=== PATIENT | female | born 1985 | race Caucasian/White ===

== ENCOUNTER 2022-11-15 08:10 | Inpatient (IN) | payer SELFPAY, OTHER ==
[2022-11-15] VITALS (40 sets, daily range): BP systolic 99–135; BP diastolic 56–84; PULSE 65–105; RESP 16–17; TEMP 36.6–37.8; O2SAT 97–99; BMI 26.4
--- NOTE | 2022-11-15 08:48 | HP.PCM.OB_ITS ---
HPI - General General Date of Admission: 11/15/22 HPI Narrative NATE BUTLER, is a 37 F at 39 weeks gestation who presents as a transfer from attempted home delivery with Idalia Butler. Patient had SROM 11/14/22 around 1630 for clear fluid and continues to have clear fluid. Patient has labored all night and is tired and desires epidural for pain control. has been uncomplicated. She has received care through irrigation flume layer. Maternal Data Information MARYAM Calculator Estimated Delivery Date Method Current WG Current Estimate 11/22/22 Manual 39w 0d PFSH PFS Medical History (Updated 11/15/22 @ 13:11 by Barb Ridley CNM) Finger amputee Home Medications calcium 150 mg tablet 150 mg PO DAILY 11/15/22 [History Last Taken Unknown] omega-3 fatty acids 1,000 mg PO DAILY 11/15/22 [History Last Taken Unknown] elwomxve-dro-Hl-FA 1 mg tablet 1 tab PO DAILY 11/15/22 [History Last Taken Unknown]
--- NOTE | 2022-11-15 08:48 | PCM.HP.OB ---
HPI - General General Date of Admission: 11/15/22 HPI Narrative NATE PAIGE, is a 37 F at 39 weeks gestation who presents as a transfer from attempted home delivery with Idalia Paige. Patient had SROM 11/14/22 around 1630 for clear fluid and continues to have clear fluid. Patient has labored all night and is tired and desires epidural for pain control. has been uncomplicated. 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 Maternal Data Information MARYAM Calculator Estimated Delivery Date Method Current WG Current Estimate 11/22/22 Manual 39w 0d PFSH PFSH Medical History (Updated 11/15/22 @ 13:11 by Barb Ridley CNM) Finger amputee Home Medications calcium 150 mg tablet 150 mg PO DAILY 11/15/22 [History Last Taken Unknown] omega-3 fatty acids 1,000 mg PO DAILY 11/15/22 [History Last Taken Unknown] eccrmtlh-vsc-Vg-FA 1 mg tablet 1 tab PO DAILY 11/15/22 [History Last Taken Unknown] Allergy/AdvReac Type Severity Reaction Status Date / Time No Known Allergies Allergy Verified 11/15/22 08:40 Family History (Updated 11/15/22 @ 09:04 by Елена Mcqueen) Mother Breast cancer Social History Smoking Status: Never smoker History Elective abortions Hx Para 7 Spontaneous abortions Hx # Term Pregnancies Ectopic pregnancies Hx # Pregnancies Multiple births # of living children ROS Eyes Eyes: Denies blurry vision, change in vision or spots in vision ENT HEENT: Denies dizziness or headache(s) Cardiovascular Cardiovascular: Denies abdominal pain, chest pain or dyspnea Respiratory/Chest Respiratory/Chest: Denies cough, dyspnea, shortness of breath at rest or shortness of breath with exertion Gastrointestinal Gastrointestinal: Denies abdominal pain, diarrhea or vomiting Genitourinary Genitourinary: Denies change in urinary stream, difficulty urinating or dysuria Musculoskeletal Musculoskeletal: Reports none Integumentary Integumentary: Denies rash Neurologic Neurologic: Denies dizziness, headache(s), memory loss or weakness Psychiatric Psychiatric: Reports none Vital Signs Vital Signs Vital Signs: 11/15/22 08:34 11/15/22 08:34 11/15/22 08:34 Temperature Temperature Source Temporal Pulse Rate 101 H Blood Pressure 125/77 H BP Systolic 125 BP Diastolic 77 11/15/22 08:34 Temperature 98.8 F Temperature Source Pulse Rate Blood Pressure BP Systolic BP Diastolic Weight Weight: 140 lb Body Mass Index (BMI) 26.4 Physical Exam Const alert, oriented x3 and no apparent distress General Appearance: cooperative Orientation / Consciousness: awake Exam Limitations: no limitations HEENT normocephalic Head and Scalp: normal to inspection Eyes General Eye: normal appearance of both eyes Neck full ROM and no lymphadenopathy Lymph Lymphatic: no lymphadenopathy noted Chest inspection of chest normal Resp normal respiratory effort, normal air movement and clear to auscultation bilaterally Effort and Inspection: able to speak in complete sentences and symmetric chest movement Cardio regular rate and regular rhythm GI normal to inspection, nondistended, normoactive bowel sounds Manual OB Exam: presentation cephalic Amniotic Fluid: clear amniotic fluid Back/Spine normal ROM Extremity full ROM and no calf tenderness Skin no rashes or lesions noted General Skin Exam: no breakdown Neuro oriented x3 and CN's II-XII intact bilaterally Psych mental status grossly normal and thought process normal Labs Labs Labs: Blood Type A POSITIVE Antibody Screen NEGATIVE Hct 36.3 % (37-47) L Hgb 12.3 g/dL (12.0-15.0) Syphilis Total Ab Non-reactive Rubella IgG Antibody Reactive (Nonreactive) Hep Bs Antigen Non-Reactive (Nonreactive) Chlamydia DNA (EPI) Pending Neisseria gonorrhoeae DNA (EPI) Pending HIV 1&2 Antibody Non-Reactive (Nonreactive) Group B Strep DNA Negative (Negative) Assessment & Plan (1) 39 weeks gestation of : (2) Spontaneous rupture of amniotic membranes: (3) Grand multipara in labor: (4) Active labor at term: PLAN: Plan TAUS confirms Cephalic Clear fluid Admit to labor and delivery Routine labs/ all labs Rapid GBS Start IV fluids and run per orders Epidural when indicated Anticipate Dr. Mcmillan notified of admission and is collaborating physician- in route to evaluate patient at bedside
[2022-11-15] MEDS: LACTATED RINGERS 500 ML 999 ML IV (08:54)
[2022-11-15 09:10] LABS: Bedside Glucose 115 mg/dL (74-106)
[2022-11-15 09:16] LABS: Absolute Lymphocyte Count 0.87 X10^3/uL (0.83-4.51); Absolute Neutrophil Count 22.2 X10^3/uL (2.0-7.7); Basophil# 0.04 X10^3/uL; Basophil% 0.2 % (0-1); Eosinophil# 0.59 X10^3/uL; Eosinophils% 2.4 % (0-5); Hematocrit 36.3 % (37-47); Hemoglobin 12.3 g/dL (12.0-15.0); Lymphocyte # 0.87 X10^3/ul (0.83-4.51); Lymphocyte % 3.5 % (19-41); Mean Corp Hgb Conc 33.9 g/dL (32-36); Mean Corpuscular Hgb 30.4 pg (27.0-32.0); Mean Corpuscular Volume 89.6 fL (81-99); Mean Platelet Vol. 8.3 fl (6.2-12.0); Monocyte# 0.71 X10^3/uL; Monocyte% 2.9 % (0-10); NRBC Flagged by Analyzer 0 % (0-5); POSITIVE DIFFERENTIAL YES; Platelet Count 260 K/mm3 (150-450); RBC Distribution Width CV 13.6 % (11.6-14.6); RBC Distribution Width SD 44.6 fl (35.1-43.9); Red Blood Count 4.05 M/mm3 (4.2-5.4); White Blood Count 24.7 K/mm3 (4.4-11.0)
[2022-11-15 09:17] LABS: Differential Indicated SCAN CRITERIA MET
[2022-11-15] MEDS: Lactated Ringers 1,000 ML 200 ML IV (09:45)
[2022-11-15 09:58] LABS: Rubella IgG Reactive (Nonreactive); Syphilis Antibodies Non-reactive
[2022-11-15] MEDS: Oxytocin 15 Units/NS 250ml 15 UNITS/250 ML IV.SOLN 2 UNITS IV (10:16)
[2022-11-15] MEDS: fentaNYL-bupivacaine (epidural) 100 ML BAG EPIDURAL (10:16)
[2022-11-15 10:17] LABS: HIV - WCH Non-Reactive (Nonreactive); Hepatitis B Surface Antigen Non-Reactive (Nonreactive); Hepatitis C Antibody Non-Reactive (Nonreactive)
[2022-11-15 10:18] LABS: Group B Strep DNA By PCR Negative (Negative); Internal Control PASS; Probe Check PASS; Specimen Processing Control PASS
[2022-11-15 11:15] LABS: Bacteria 0 SEEN /hpf (None Seen); Mucous, Urine 0 SEEN /hpf (<or=2+); Squamous Epithelial Cells - UA 0 SEEN /hpf (5-10)
[2022-11-15 11:26] LABS: Color, Urine Yellow (Yellow); Glucose, Dipstick Normal (Normal); Leukocyte Esterase-Dipstick 25 /ul (Negative); Nitrite-Dipstick Negative (Negative); Occult Blood-Urine 250 /ul (Negative); Protein-Dipstick 30 mg/dl (Negative); Specific Gravity, Urine 1.015 (1.002-1.030); Urine Bilirubin Dipstick Negative (Negative); Urine Clarity Sl. Cloudy (Clear); Urine Urobilinogen Normal (Normal)
[2022-11-15 11:27] LABS: Ketone-Dipstick 150 mg/dl (Negative)
[2022-11-15 11:32] LABS: Red Blood Cells-Urine 25-50 SEEN /hpf (0-5); White Blood Cells 0-5 SEEN /hpf (0-5)
--- NOTE | 2022-11-15 12:58 | PCM.PN.BLA ---
Progress Note Comfortable w/ epidural. Cervix 9+ cm, mostly swollen anterior lip. Reduced during a contraction but came back. Will continue expectanat management. Category 2 tracing but normal variability, baseline and accels present. Continue pitocin. EFW < 4000 gm clinically. Pelvis clinically adequate. Case reviewed w/ C. Khai ANGLE. Cont. w/ comanagement.
--- NOTE | 2022-11-15 14:22 | EX.PCM.OBRPT ---
Assessment & Plan (1) (spontaneous vaginal delivery): Maternal Data Information MARYAM Calculator Estimated Delivery Date Method Current WG Current Estimate 11/22/22 Manual 39w 0d Vaginal Delivery Maternal Presentation Maternal Presentation: Active Labor and Spontaneous Rupture of Membranes Maternal Presentation: at 39 weeks gestation with spontaneous rupture of membranes and in active labor. Operative Information Date of Procedure: 11/15/22 Pre-Operative Diagnosis: Term gestation Post-Operative Diagnosis: , live male Surgery / Procedure Performed: Spontaneous Vaginal Delivery Type of Anesthesia: Epidural Drain: [place] to straight drain Estimated Blood Loss: 150 Time of Delivery: 14:09 Findings Description of Procedure: Called to patient room for complete dilation. With 2 pushes, head delivered over intact perineum followed immediately by anterior shoulder and remainder of infant body without traction. FOB assisted with delivery of . Vigorous male placed on maternal abdomen and was attended to by nursing staff. Pitocin IV started for active management of the third stage of labor. 3 vessel cord clamped and cut by FOB after delay and placed skin to skin. Placenta delivered spontaneously and intact. Vagina and perineum intact. Vaginal sweep completed by me. EBL 150 cc, APGARS 8/9. Fundus firm 2 below U. Patient and infant bonding well at this time. Dr. Mcmillan in house and notified of delivery. Presentation: Vertex and STEVENSON Amniotic Membrane Rupture Type: Spontaneous Time of Membrane Rupture: 11/14/22 1630 Amniotic Fluid Description: Clear Placental Delivery Description: Spontaneous Placenta Disposition: [facility] Cord Vessel Description: 3 Vessels Cord Entanglement: None Infant A Gender: Male (1 minute): 8 (5 minute): 9 Delayed Cord Clamping: Yes Post Vaginal Delivery Medications Given After Delivery: IV Pitocin Episiotomy Description: None Laceration: None Complication Complications: None
[2022-11-15] MEDS: Oxytocin 15 Units/NS 250ml 15 UNITS/250 ML IV.SOLN 83 UNITS IV (15:16)
[2022-11-15] MEDS: Methylergonovine 0.2 MG/ML Ampul IM (15:17)
--- NOTE | 2022-11-15 19:00 | NURSING ---
RN helped pt ambulate to bathroom. Tolerated well. After pt went to bathroom, helped to chair while RN changed bed. Pt states starting to feel like her head is swimming and her ears are plugged. Helped pt back to bed. BP stable-HR was slightly elevated, then pt got tearful and just said she was tired and needed to sleep-HR elevated to 130's. RN at bedside-reassed HR and was back to 90's. Pt just states she feels exhausted and needs to sleep. Nightshift RN now at bedside.
--- NOTE | 2022-11-15 20:30 | NURSING ---
This RN at bedside and pt wanted to get up again for feeling like she had to urinate and got up and felt asymptomatic with this RNpa her. pt voided with no difficulties and got back in bed after.
[2022-11-16 04:30] VITALS: BP 92/45; PULSE 77; RESP 17; TEMP 37.1
[2022-11-16] MEDS: Acetaminophen 500 MG Tablet 1000 MG PO (04:30)
[2022-11-16 05:35] VITALS: BP 95/54
[2022-11-16 05:44] LABS: Hematocrit 30.5 % (37-47); Hemoglobin 10.4 g/dL (12.0-15.0); Mean Corp Hgb Conc 34.1 g/dL (32-36); Mean Corpuscular Hgb 31.2 pg (27.0-32.0); Mean Corpuscular Volume 91.6 fL (81-99); Mean Platelet Vol. 8.4 fl (6.2-12.0); Platelet Count 200 K/mm3 (150-450); RBC Distribution Width CV 14.3 % (11.6-14.6); RBC Distribution Width SD 47.4 fl (35.1-43.9); Red Blood Count 3.33 M/mm3 (4.2-5.4); White Blood Count 13.9 K/mm3 (4.4-11.0)
--- NOTE | 2022-11-16 07:13 | PN.OBGYN_ITS ---
Subjective Subjective Patient seen at bedside. Feeling good. Denies any pain. Ambulating and voiding without difficulty. Lochia decreasing. without difficulty. Desires discharge home. Objective Data Objective Data Vital Signs: Vital Signs Temp Pulse Resp BP Pulse Ox O2 Del Method 98.8 F 77 17 95/54 L 99 Room Air 11/16/22 04:30 11/16/22 04:30 11/16/22 04:30 11/16/22 05:35 11/15/22 19:25 11/15/22 19:18 Oxygen Delivery Method Room Air Weight: 140 lb Body Mass Index (BMI) 26.4 Intake & Output: Intake and Output for Last 24 Hours 11/14/22 11/15/22 11/16/22 23:59 23:59 23:59 Intake Total 1890.00 / 1890.00 Output Total 1600 / 1600 Balance 290.00 / 290.00 Lab / Micro Data Result Diagrams: 11/16/22 05:30 Labs: Laboratory Results - last 24 hr 11/15/22 08:53: POC Glucose 115 H 11/15/22 08:54: WBC 24.7 H, RBC 4.05 L, Hgb 12.3, Hct 36.3 L, MCV 89.6, MCH 30.4, MCHC 33.9, RDW Std Deviation 44.6 H, RDW Coeff of Reddy 13.6, Plt Count 260, MPV 8.3, Immature Gran % (Auto) 1.000 H, Neut % (Auto) 90.0 H, Lymph % (Auto) 3.5 L, [place] % (Auto) 2.9, Eos % (Auto) 2.4, Baso % (Auto) 0.2, Absolute Neuts (auto) 22.2 H, Absolute Lymphs (auto) 0.87, Nucleated RBC % 0 11/15/22 08:54: Syphilis Total Ab Non-reactive, Rubella IgG Antibody Reactive 11/15/22 08:54: Blood Type A POSITIVE, Antibody Screen NEGATIVE 11/15/22 08:54: Hep Bs Antigen Non-Reactive, Hepatitis C Antibody Non-Reactive, HIV 1&2 Antibody Non-Reactive 11/15/22 09:10: Chlam trachomat DNA PCR Cancelled, N.gonorrhoeae DNA (PCR) Cancelled, Group B Strep DNA Negative, Specimen Comment Not Reportable 11/15/22 10:54: Urine Color Yellow, Urine Clarity Sl. Cloudy, Urine pH 6.0, Ur Specific [place] 1.015, Urine Protein 30 H, Urine Glucose (UA) Normal, Urine Ketones 150 A*, Urine Occult Blood 250 H, Urine Nitrite Negative, Urine Bilirubin Negative, Urine Urobilinogen Normal, Ur Leukocyte Esterase 25 H, Urine RBC 25-50 SEEN, Urine WBC 0-5 SEEN, Ur Squamous Epith Cells 0 SEEN, Urine Bacteria 0 SEEN, Urine Mucus 0 SEEN 11/16/22 05:30: WBC 13.9 H, RBC 3.33 L, Hgb 10.4 L, Hct 30.5 L, MCV 91.6, MCH 31.2, MCHC 34.1, RDW Std Deviation 47.4 H, RDW Coeff of Reddy 14.3, Plt Count 200, MPV 8.4 ROS Eyes Eyes: Denies blurry vision, change in vision or spots in vision ENT HEENT: Denies dizziness or headache(s) Cardiovascular Cardiovascular: Denies abdominal pain, chest pain or dyspnea Respiratory/Chest Respiratory/Chest: Denies cough, dyspnea, shortness of breath at rest or short ness of breath with exertion Gastrointestinal Gastrointestinal: Denies abdominal pain, diarrhea or vomiting Genitourinary Genitourinary: Denies change in urinary stream, difficulty urinating or dysuria Musculoskeletal Musculoskeletal: Reports none Integumentary Integumentary: Denies rash Neurologic Neurologic: Denies dizziness, headache(s), memory loss or weakness Physical Exam Const alert and no apparent distress General Appearance: cooperative and comfortable Exam Limitations: no limitations HEENT normocephalic Eyes General Eye: normal appearance of both eyes Neck full ROM General: normal visual inspection Chest Chest: symmetrical chest wall rise Resp normal respiratory effort and normal air movement Effort and Inspection: symmetric chest movement Auscultation: clear to auscultation bilaterally Cardio regular rate and regular rhythm GI normal to inspection, nondistended, normoactive bowel sounds Back/Spine normal ROM Extremity full ROM and no calf tenderness General Extremity: normal exam except as noted Skin no rashes or lesions noted Neuro CN's II-XII intact bilaterally Psych mental status grossly normal Assessment & Plan (1) (spontaneous vaginal delivery): (2) Care and examination of lactating mother: PLAN: Plan PPD 1 Routine care support D/C home with follow up with roads and parking lots sweeper operator
--- NOTE | 2022-11-16 07:15 | DCINST_ITS ---
Discharge Instructions Diet Discharge Diet: No restrictions Activity Discharge Activity: Return to Normal Activity, May Shower and May Take a Tub Bath May resume sexual activity in: 4-6 weeks Weight Bearing Status: Weight bearing as tolerated Dressing / Incision Call your doctor if you observe: Inability to urinate, Using more than 1 pad per hour, Shortness of breath, Dizziness, Swelling in the ankles, Chest pain, Calf discomfort and Uncontrolled pain Follow Up Care Please Follow Up With: Barb Ridley CNM When: Within 10 days Test Results: Test results from this visit will be discussed in further detail at your follow- up appointment, if applicable. Discharge Plan Admission Admit Date/Time: 11/15/22 08:10 Primary Reason for Your Visit: Labor and Delivery Attending Provider: Barb Ridley Primary Care Provider: WILLY CHONG Discharge Orders/Prescriptions Prescriptions: No Action 1 mg Tablet 1 tab PO DAILY calcium 150 mg Tablet 150 mg PO DAILY [place] 3 Fish Oil Capsule 1,000 mg PO DAILY Referrals / Follow Up: WILLY CHONG [Other] Disposition Disposition (needs filled in before D/C Order can be placed): Home, Self Care
[2022-11-16] MEDS: Naproxen 500 MG Tablet PO (08:17)
[2022-11-16 08:18] VITALS: BP 104/57; PULSE 72; RESP 16; TEMP 36.7; O2SAT 96
[2022-11-16 11:23] VITALS: BP 109/54; PULSE 80; RESP 16; TEMP 36.7; O2SAT 96
[2022-11-16 15:31] VITALS: BP 112/63; PULSE 69; RESP 16; TEMP 36.7; O2SAT 96
[2022-11-16 16:07] LABS: Amphetamine Urine VISTA NEGATIVE (<1000 ng/mL); Barbiturate Urine VISTA NEGATIVE (< 200 ng/mL); Benzodiazepine Urine VISTA NEGATIVE (< 200 ng/mL); Cocaine Urine VISTA NEGATIVE (< 300 ng/mL); Ecstacy Urine VISTA NEGATIVE (< 500 ng/mL); Methadone Urine VISTA NEGATIVE (< 300 ng/mL); PCP Urine VISTA NEGATIVE (< 25 ng/mL); THC Urine VISTA NEGATIVE (< 50 ng/mL); Vista UDS pH Range 6
[2022-11-17 22:06] LABS: Chlamydia By Nucleic Acid AMP Negative (Negative)
[2022-11-18 20:41] LABS: Gonococcus By Nucleic Acid AMP Negative (Negative)
== END 2022-11-16 17:30 | disposition home or self-care (01) | DRG 807 ==
PROVIDERS: Obstetrics & Gynecology; Admitting Provider Advanced Practice Midwife; Referring Provider Advanced Practice Midwife; Visit Provider Advanced Practice Midwife
DX: O42.92 Full-term premature rupture of membranes, unspecified as to length of time between rupture and onset of labor (principal); Z37.0 Single live birth; Z3A.39 39 weeks gestation of pregnancy
CPT/HCPCS: 59025; 59050; 76815; 80307; 81001; 82962; 85025; 85027; 86703; 86762; 86780; 86803; 86850; 86900; 86901; 87081; 87340; 87491; 87591; 87653; 99221; J7120; G0378